=== PATIENT | female | born 1975 | race Caucasian/White ===

== ENCOUNTER 2017-10-23 14:41 | Emergency (ER) | payer OTHER ==
[2017-10-23 16:54] VITALS: BP 126/86
--- NOTE | 2017-10-23 17:19 | UC ---
Lower Extremity/Ankle HPI - HPI Summary HPI Summary: sprained ankle this afternoon, stepped into a hole in the ground, was able to bear weight right after injury and has been walking since taking care of her children. She denies radiation to other areas or numbness - History of Current Complaint Chief Complaint: UCLowerExtremity Stated Complaint: LEFT ANKLE COMPLAINT Time Seen by Provider: 10/23/17 17:03 Hx Obtained From: Patient Hx Last Menstrual Period: ABLATION Onset/Duration: Sudden Onset, Lasting Hours Severity Initially: Mild Severity Currently: Moderate Pain Intensity: 5 Aggravating Factor(s): Standing, Ambulation Alleviating Factor(s): Rest, Elevation, Ice - Risk Factors Gout Risk Factors: Negative DVT Risk Factors: Negative Septic Arthritis Risk Factor: Negative - Allergies/Home Medications Allergies/Adverse Reactions: Allergies Allergy/AdvReac Type Severity Reaction Status Date / Time No Known Allergies Allergy Verified 10/23/17 16:51 Home Medications: Home Medications NK [No Home Medications Reported] 10/23/17 [History Confirmed 10/23/17] PMH/Surg Hx/FS Hx/Imm Hx Previously Healthy: Yes - Surgical History Surgical History: Yes Surgery Procedure, Year, and Place: UTERINE ABLATION. X2. ADENOIDECTOMY - Social History Alcohol Use: Occasionally Substance Use Type: None Smoking Status (MU): Never Smoked Tobacco Review of Systems Constitutional: Negative Musculoskeletal: Arthralgia, Myalgia All Other Systems Reviewed And Are Negative: Yes Physical Exam Triage Information Reviewed: Yes Appearance: Well-Appearing, No Pain Distress, Well-Nourished Vital Signs: Initial Vital Signs Temp 99.5 F 10/23/17 16:48 Pulse 82 10/23/17 16:48 Resp 16 10/23/17 16:48 BP 126/86 10/23/17 16:48 Pulse Ox 99 10/23/17 16:48 Vital Signs Reviewed: Yes Eyes: Positive: Conjunctiva Clear ENT: Positive: Hearing grossly normal Neck: Positive: Supple Respiratory: Positive: Chest non-tender Cardiovascular: Positive: Pulses Normal, Brisk Capillary Refill Musculoskeletal: Positive: Strength Intact, ROM Intact, Edema @ - edema of inferior and anterior area to lateral malleolus, no deformity, no visible bruising., Other: - inaja negative Neurological: Positive: Alert, Muscle Tone Normal, Fatigued Lower Extremity Course/Dx - Course Course Of Treatment: ankle sprain was wrapped with SHANNON bandage, keep rest, ice, compression and elevation, use ibuprofen for the first 24 hrs and then PRN, f/u PCP , consider PT exercises and stretching/range of motion - Differential Dx/Diagnosis Provider Diagnoses: left ankle sprain Discharge - Sign-Out/Discharge Documenting (check all that apply): Discharge/Admit/Transfer - Discharge Plan Condition: Stable Disposition: HOME Patient Education Materials: Ankle Sprain (ED), Ibuprofen (By mouth) Referrals: Non Staff,Doctor [Primary Care Provider] - - Billing Disposition and Condition Condition: STABLE Disposition: Home
== END 2017-10-23 17:19 | disposition home or self-care (01) ==
LOC: UCCORT 14:41
DX: S93.402A Sprain of unspecified ligament of left ankle, initial encounter (principal); X58.XXXA Exposure to other specified factors, initial encounter; Y92.9 Unspecified place or not applicable
CPT/HCPCS: 99201; G0463